=== PATIENT | female | born 1940 | race Caucasian/White ===

== ENCOUNTER 2019-02-19 18:19 | Inpatient (IN) | payer MEDICAID, MEDICARE ==
[2019-02-19 19:32] LABS: HEMOGLOBIN 9.8 gm/dL (12-16)
[2019-02-19 19:37] LABS: HEMATOCRIT 29.8 % (41.0-60); MEAN CORPUSCULAR HEMOGLOBIN 30.4 pg (27.0-31.0); MEAN CORPUSCULAR HGB CONC 32.8 pg (28.0-36.0); PLATELET COUNT 304 Th/cmm (150-400); RED BLOOD COUNT 3.21 Mil/cmm (3.80-5.20); RED CELL DISTRIBUTION WIDTH 13.6 % (11.5-20.0); WHITE BLOOD COUNT 4.5 Th/cmm (4.8-10.8)
[2019-02-19 19:47] LABS: ANION GAP 13.2 (7.0-16.0); BUN - UREA NITROGEN 34 mg/dL (7-25); CALCIUM SERUM 8.6 mg/dL (8.6-10.3); CHLORIDE 109 mEq/L (98-107); CREATININE - SERUM 1.3 mg/dL (0.6-1.2); GLUCOSE 110 mg/dL (70-105); POTASSIUM SERUM 4.2 mEq/L (3.5-5.1); SODIUM SERUM 137 mEq/L (136-145)
[2019-02-19 20:00] LABS: EOSINOPHIL 14 % (0-5); LYMPHOCYTE 14 % (20-50); MONOCYTE 12 % (2-10); NEUTROPHILS 60 % (40-80)
--- NOTE | 2019-02-19 20:33 | ED Physician Chart ---
ED Chief Complaint/HPI - Patient Information Date Seen:: 02/19/19 Time Seen:: 20:33 Chief Complaint:: Agitation History of Present Illness:: 78 yo female with history of COPD, CKD, anemia, CAD, CVA, depression, anxiety, [facility] anxiety, confusion and restlessness at [facility]. Pt was seen by Dr. Abdul (psychology) and Dr. chavez ( psychiatry) who recommended further evaluation and management. Pt also had elevated BUN 31, Cr 1.42 and decreased GFR 36, compared to BUN 28, Cr 1.22 and GFR 43 a month ago. Allergies:: Allergies Allergy/AdvReac Type Severity Reaction Status Date / Time No Known Allergies Allergy Verified 02/19/19 18:29 Vitals:: Vital Signs - 8 hr 02/19/19 18:32 Temp 99.2 F HR 94 RR 16 BP 128/66 O2 Sat % 96 ED Review of Systems - Review of Systems General/Constitutional: No fever, No chills Skin: Skin lesions Head: No headache Eyes: No pain ENT: No nasal drainage Neck: No neck pain Cardio Vascular: No chest pain Pulmonary: No SOB GI: No nausea, No vomiting, No pain Musculoskeletal: No bone or joint pain Psychiatric: Prior psych history, Depression, Anxiety Neurological: No confusion ED Past Medical History - Past Medical History Past Medical History: CAD, Asthma/COPD, CVA/TIA, Other (Dysphagia, CKD, anemia, gastritis) Social History: Non Smoker, No Alcohol, No Drug Use Psychiatricy History: Depression, Other (Anxiety) Family Medical History - Family Member Mother History Unknown: Yes Ethnicity: Unknown Living Status: Unknown Hx Family Cancer: No Hx Family Coronary Artery Disease: No Hx Family Congestive Heart Failure: No Hx Family Hypertension: No Hx Family Stroke: No Hx Family Diabetes: No Hx Family Seizures: No Hx Family Dementia: No Hx Family AIDS: No Hx Family HIV: No Hx Family COPD: No Hx Family Hepatitis: No Hx Family Psychiatric Problems: No Hx Family Tuberculosis: No ED Physical Exam - Physical Examination General/Constitutional: Awake Head: Atraumatic Eyes: PERRL, EOMI Other Skin comments:: Multiple scratch wounds on bilateral lower extremities ENMT: Nasal exam nl Neck: No nuchal rigidity Respiratory: No Wheeze/Rhonchi/Rales Cardio Vascular: RRR, No murmur, gallop, rubs, NL S1 S2 GI: No tenderness/rebounding/guarding, Nondistended : No CVA tenderness Extremities: normal strength in all extremities Neuro/Psych: Alert/oriented (x self and place) ED Labs/Radiology/EKG Results - Lab Results Results: Laboratory Tests 02/19/19 02/19/19 19:25 19:25 WBC 4.5 L RBC 3.21 L Hgb 9.8 L Hct 29.8 L MCV 93.0 MCH 30.4 MCHC Differential 32.8 RDW 13.6 Plt Count 304 MPV 6.8 Add Manual Diff YES Eosinophils % LOCKSTITCH ZIPPER SETTER Basophils % LOCKSTITCH ZIPPER SETTER Neutrophils (Manual) 60 Lymphocytes 14 L Monocytes 12 H Eosinophils 14 H Sodium 137 Potassium 4.2 Chloride 109 H Carbon Dioxide 19.0 L Anion Gap 13.2 BUN 34 H Creatinine 1.3 H Est GFR ( Amer) TNP Est GFR (Non-Af Amer) TNP BUN/Creatinine Ratio 26.2 Glucose 110 H Calcium 8.6 Laboratory Last Values WBC 4.5 Th/cmm (4.8-10.8) L 02/19/19 19:25 RBC 3.21 Mil/cmm (3.80-5.20) L 02/19/19 19:25 Hgb 9.8 gm/dL (12-16) L 02/19/19 19:25 Hct 29.8 % (41.0-60) L 02/19/19 19:25 MCV 93.0 fl (81-100) 02/19/19 19:25 MCH 30.4 pg (27.0-31.0) 02/19/19 19:25 MCHC Differential 32.8 pg (28.0-36.0) 02/19/19 19:25 RDW 13.6 % (11.5-20.0) 02/19/19 19:25 Plt Count 304 Th/cmm (150-400) 02/19/19 19:25 MPV 6.8 fl 02/19/19 19:25 Add Manual Diff YES 02/19/19 19:25 Eosinophils % LOCKSTITCH ZIPPER SETTER 02/19/19 19:25 Basophils % LOCKSTITCH ZIPPER SETTER 02/19/19 19:25 Neutrophils (Manual) 60 % (40-80) 02/19/19 19:25 Lymphocytes 14 % (20-50) L 02/19/19 19:25 Monocytes 12 % (2-10) H 02/19/19 19:25 Eosinophils 14 % (0-5) H 02/19/19 19:25 PT 9.5 SECONDS (9.5-11.5) 02/19/19 20:31 INR 0.91 (0.5-1.4) 02/19/19 20:31 PTT (Actin FS) 22.1 SECONDS (26.0-38.0) L 02/19/19 20:31 Sodium 137 mEq/L (136-145) 02/19/19 20:31 Potassium 4.2 mEq/L (3.5-5.1) 02/19/19 20:31 Chloride 109 mEq/L (98-107) H 02/19/19 20:31 Carbon Dioxide 18.4 mEq/L (21.0-31.0) L 02/19/19 20:31 Anion Gap 13.8 (7.0-16.0) 02/19/19 20:31 BUN 35 mg/dL (7-25) H 02/19/19 20:31 Creatinine 1.4 mg/dL (0.6-1.2) H 02/19/19 20:31 Est GFR ( Amer) TNP 02/19/19 20:31 Est GFR (Non-Af Amer) TNP 02/19/19 20:31 BUN/Creatinine Ratio 25.0 02/19/19 20:31 Glucose 111 mg/dL (70-105) H 02/19/19 20:31 Calcium 8.6 mg/dL (8.6-10.3) 02/19/19 20:31 Total Bilirubin 0.3 mg/dL (0.3-1.0) 02/19/19 20:31 AST 53 U/L (13-39) H 02/19/19 20:31 ALT 36 U/L (7-52) 02/19/19 20:31 Alkaline Phosphatase 134 U/L (34-104) H 02/19/19 20:31 Troponin I 0.02 ng/mL (0.01-0.05) 02/19/19 20:31 B-Natriuretic Peptide 61.1 pg/mL (5.0-100.0) 02/19/19 20:31 Total Protein 6.5 gm/dL (6.0-8.3) 02/19/19 20:31 Albumin 3.5 gm/dL (3.7-5.3) L 02/19/19 20:31 Globulin 3.0 gm/dL 02/19/19 20:31 Albumin/Globulin Ratio 1.2 (1.0-1.8) 02/19/19 20:31 Urine Source CLEAN C 02/19/19 21:56 Urine Color YELLOW 02/19/19 21:56 Urine Clarity HAZY (CLEAR) 02/19/19 21:56 Urine pH 6.0 (4.6 - 8.0) 02/19/19 21:56 Ur Specific [place] 1.020 (1.005-1.030) 02/19/19 21:56 Urine Protein TRACE mg/dL (NEGATIVE) 02/19/19 21:56 Urine Glucose (UA) NEGATIVE mg/dL (NEGATIVE) 02/19/19 21:56 Urine Ketones NEGATIVE mg/dL (NEGATIVE) 02/19/19 21:56 Urine Blood NEGATIVE (NEGATIVE) 02/19/19 21:56 Urine Nitrate NEGATIVE (NEGATIVE) 02/19/19 21:56 Urine Bilirubin NEGATIVE (NEGATIVE) 02/19/19 21:56 Urine Urobilinogen 0.2 E.U./dL (0.2 - 1.0) 02/19/19 21:56 Ur Leukocyte Esterase NEGATIVE (NEGATIVE) 02/19/19 21:56 Urine RBC 0-2 /hpf (0-5) 02/19/19 21:56 Urine WBC 0-2 /hpf (0-5) 02/19/19 21:56 Ur Epithelial Cells OCCASIONAL /lpf (FEW) 02/19/19 21:56 Urine Bacteria FEW /hpf (NONE SEEN) 02/19/19 21:56 Urine Opiates Screen NEGATIVE (NEGATIVE) 02/19/19 21:56 Urine Methadone Screen NEGATIVE (NEGATIVE) 02/19/19 21:56 Ur Barbiturates Screen NEGATIVE (NEGATIVE) 02/19/19 21:56 Ur Tricyclics Screen NEGATIVE (NEGATIVE) 02/19/19 21:56 Ur Phencyclidine Scrn NEGATIVE (NEGATIVE) 02/19/19 21:56 Amphetamines Screen NEGATIVE (NEGATIVE) 02/19/19 21:56 U Methamphetamines Scrn NEGATIVE (NEGATIVE) 02/19/19 21:56 U Benzodiazepines Scrn POSITIVE (NEGATIVE) H 02/19/19 21:56 U Cocaine Metab Screen NEGATIVE (NEGATIVE) 02/19/19 21:56 U Cannabinoids Screen NEGATIVE (NEGATIVE) 02/19/19 21:56 - Radiology Results Results: CXR: COPD, no focal consolidation - EKG Interpretations EKG Time:: 19:29 Rate & Rhythm: Sinus rhythm, 96 bpm Intervals: Normla intervals Comments:: Patient shook her body which caused inaccurate EKG ED Assessment - Assessment General Assessment: Anemia, normocytic Acute on chronic kidney disease CKD 3B COPD CAD Generalized anxiety disorder Depression Anxiety Psychosis Assessment/Comments:: CBC, CMP, PT/PTT, BNP, Troponin, UA, Urine drug screen CXR, EKG NS 1L IV (patient refused) Encourage pt to increase po fluid intake Admit to [facility] for further evaluation and management ED Septic Shock - . Is Septic Shock (SBP<90, OR Lactate>4 mmol\L) present?: No - <6hrs of presentation: Vital Signs: Vital Signs - 8 hr 02/19/19 18:32 Temp 99.2 F HR 94 RR 16 BP 128/66 O2 Sat % 96 ED Reassessment (Disposition) - Reassessment Reassessment Condition:: Improved - Patient Disposition Discharge/Transfer:: Ming w/in this hosp Admitting Medical Physician:: Sha Davila Admitting Psych Physician:: Adan Silverman
[2019-02-19 20:50] LABS: INR 0.91 (0.5-1.4)
[2019-02-19 20:54] LABS: ALB/GLOB RATIO 1.2 (1.0-1.8); ALBUMIN 3.5 gm/dL (3.7-5.3); ALKALINE PHOSPHATASE 134 U/L (34-104); ANION GAP 13.8 (7.0-16.0); BILIRUBIN,TOTAL 0.3 mg/dL (0.3-1.0); BUN - UREA NITROGEN 35 mg/dL (7-25); CALCIUM SERUM 8.6 mg/dL (8.6-10.3); CARBON DIOXIDE 18.4 mEq/L (21.0-31.0); CHLORIDE 109 mEq/L (98-107); CREATININE - SERUM 1.4 mg/dL (0.6-1.2); GLUCOSE 111 mg/dL (70-105); POTASSIUM SERUM 4.2 mEq/L (3.5-5.1); SGOT 53 U/L (13-39); SGPT/ALT 36 U/L (7-52); SODIUM SERUM 137 mEq/L (136-145); TOTAL PROTEIN,SERUM 6.5 gm/dL (6.0-8.3)
[2019-02-19] MEDS ORDERED: Sodium Chloride 0.9% 1,000 ML IV ONE (21:02)
[2019-02-19 22:11] LABS: URINE SOURCE CLEAN C
[2019-02-19 22:14] LABS: URINE BILIRUBIN NEGATIVE (NEGATIVE); URINE BLOOD NEGATIVE (NEGATIVE); URINE GLUCOSE (UA) NEGATIVE (NEGATIVE); URINE KETONE NEGATIVE (NEGATIVE); URINE LEUKOCYTE ESTERASE NEGATIVE (NEGATIVE); URINE MICROSCOPIC INDICATED? YES; URINE NITRATE NEGATIVE (NEGATIVE); URINE PROTEIN TRACE mg/dL (NEGATIVE); URINE UROBILINOGEN 0.2 E.U./dL (0.2 - 1.0)
[2019-02-19 22:18] LABS: URINE CLARITY HAZY (CLEAR); URINE COLOR YELLOW
[2019-02-19 22:21] LABS: URINE RBC 0-2 /hpf (0-5); URINE WBC 0-2 /hpf (0-5)
[2019-02-19 22:22] LABS: URINE BACTERIA FEW /hpf (NONE SEEN); URINE EPITHELIAL CELLS OCCASIONAL /lpf (FEW)
[2019-02-19 22:24] LABS: AMPHETAMINE URINE NEGATIVE (NEGATIVE); BARBITURATES URINE NEGATIVE (NEGATIVE); BENZODIAZEPINES QUAL URINE POSITIVE (NEGATIVE); CANNABINOID THC NEGATIVE (NEGATIVE); COCAINE METABOLITE QUAL URINE NEGATIVE (NEGATIVE); METHADONE URINE NEGATIVE (NEGATIVE); METHAMPHETAMINES QUAL URINE NEGATIVE (NEGATIVE); OPIATES (MORPHINE) QUAL. URINE NEGATIVE (NEGATIVE); PHENCYCLIDINE (PCP) URINE NEGATIVE (NEGATIVE); TRICYCLICS (TCA) QUAL. URINE NEGATIVE (NEGATIVE)
[2019-02-19 23:18] VITALS: BP 133/77
[2019-02-20 07:08] LABS: A1C 5.9 % (4.8-5.6)
[2019-02-20 08:16] LABS: CHOLESTEROL 127 mg/dL (<200); HDL -HIGH DENSITY LIPOPROTEIN 71 mg/dL (23-92); TRIGLYCERIDES 63 mg/dL (<150)
--- NOTE | 2019-02-20 09:10 | Diagnostic Imaging Report ---
Portable chest x-ray History: Shortness of breath Allowing for portable technique the heart size is normal. Tortuosity the thoracic aorta. No focal pulmonary parenchymal processes. No hilar or mediastinal abnormalities. Atherosclerotic calcification seen in the region of the carotid arteries. Impression: 1. No acute abnormalities. 2. Atherosclerotic vascular changes
--- NOTE | 2019-02-20 11:14 | Psychiatric Evaluation ---
DATE OF SERVICE: 02/20/19 REASON FOR ADMISSION: The patient was admitted for anxiety and depression. HISTORY OF PRESENT ILLNESS: The patient is a 78-year-old from [facility]. On the day of admission, the staff called to request inpatient treatment because the patient has persistent issue with anxiety, constantly calling for staff and yet not knowing what she needs. Staff reported that the patient was on Ativan p.r.n. before, but it was switched to BuSpar that does not seem to help the patient. The staff reported that the patient has been requesting to go to the hospital. Upon interview, the patient appeared to be a poor historian. The patient was able to give her name and date of , but not her age. When asked where she was living prior to coming here, the patient stated that she was living in [place], home that belongs to her 's friend. The patient reported that she lives with few other people. When asked why she is here, the patient stated her feet itch. The patient reported that this has been going on for a few weeks. The patient was not able to say what caused itching. The patient reported that last night she did not sleep well because of the noises. The patient said that normally she can sleep without any problem, without taking any medication. The patient reported that she is eating okay. When asked if she is happy or sad, the patient stated that she is not happy because she wanted her friends and family around her. The patient then went on to say that she wanted her state's attorney to be here with her. When asked if she remembers the phone number of her state's attorney, Araceli Doyle, the patient states that she does not remember. PAST PSYCHIATRIC HISTORY: The patient has history of anxiety and possibly psychosis since the patient frequently calls for help and yet she does not know what she needs. MEDICAL HISTORY: COPD, dysphagia, chronic kidney disease, anemia, atherosclerotic heart disease, anxiety, TIA. Seizure disorder. ALLERGIES: No known allergy. MEDICATIONS: Currently, the patient is on Tylenol, Lipitor, BuSpar, Colace, Atarax, Keppra, Ativan 0.5 mg q. 4 hours p.r.n., Cozaar. SURGICAL HISTORY: The patient reported that she had one section and left kidney removed. PERSONAL AND SOCIAL HISTORY: The patient reported that her and she had one son who also . The patient reported that she dropped out of the 10th grade. She used to work in the restaurant, setting up tables and stuff. The patient stated that she worked for about 10 years. When asked what she did after that the patient was not able to answer. SUBSTANCE ABUSE HISTORY: The patient denied any alcohol or tobacco use. MENTAL STATUS EXAMINATION: The patient appeared somewhat older than stated age. The patient was cooperative, maintained good eye contact. Speech appeared to be normal. Mood appeared to be somewhat anxious. Sensorium: The patient was alert, a bit confused and disoriented to time, place and person. Memory: Immediate memory, the patient was able to repeat 4 items after they were given to her the first time. Short term memory, the patient was able to recall 2/4 items. When given hints, the patient was able to recall the third item. The patient was not able to give interpretation to any of the 3 proverbs. Concentration appeared to be adequate; however, the patient was unable to perform any of the serial 3 subtraction. Insight poor. Judgment impaired. DIAGNOSTIC IMPRESSION: AXIS I: 1. Alzheimer's dementia with psychosis, depression and anxiety. 2. Psychotic disorder and mood disorder, depressed, and anxiety disorder due to medical condition. 3. Personality change due to medical condition. 4. Impulse control disorder, not otherwise specified. AXIS II: Deferred. AXIS III: Chronic obstructive pulmonary disease, dysphagia, chronic kidney disease, anemia, atherosclerotic heart disease, anxiety, transient ischemic attack and seizure disorder. AXIS IV: Medical and mental illnesses. AXIS V: Current 20, past year unknown. PLAN: We will continue the patient on Ativan for now. We will observe the patient for any psychotic symptoms. Consider using an antipsychotic if the patient exhibits any psychotic symptoms such as responding to internal stimuli, calling for staff frequently, but not knowing what she needs. ESTIMATED LENGTH OF STAY: 7-10 days. DISCHARGE CRITERIA: Include improvement of her symptoms and no adverse reaction to any medications. JOB# [id number] COLEMAN
--- NOTE | 2019-02-20 18:38 | History & Physical ---
ADMIT DATE: 02/20/2019 INTERNAL MEDICINE CONSULTATION HISTORY OF PRESENT ILLNESS: The patient is a 78-year-old female resident of a [place] [facility]. The patient of mine I am being the primary care physician. CURRENT MEDICAL PROBLEMS: Include hypertension, COPD, history of CVA, coronary artery disease, peptic ulcer disease, gastritis, arthritis, osteoporosis, and history of vertigo. SOCIAL HISTORY: No history of smoking, alcohol abuse. OBSTETRIC HISTORY: P0 +0. Menses are postmenopausal. REVIEW OF SYSTEMS: The patient is very confused, no vomiting, no diarrhea, no melena, complained of a generalized body ache. PHYSICAL EXAMINATION: GENERAL: Average female in no obvious respiratory distress. VITAL SIGNS: Include a blood pressure of 110/70, heart rate 80, respiratory rate of 18. SKIN: Show no cellulitis. HEENT: Normal conjunctivae. NECK: Supple. LUNGS: Show occasional rhonchi, occasional crepitation. No bronchial breathing. HEART: First and second heart sounds normal. ABDOMEN: Soft, minimal epigastric tenderness. Bowel sounds present, good. EXTREMITIES: Show arthritis. NEUROLOGIC: The patient has no focal motor deficits. MEDICAL DIAGNOSES: Include chronic obstructive pulmonary disease, hypertension, CVA, coronary artery disease, peptic ulcer disease, gastritis, arthritis, osteoporosis, history of vertigo. Labs have been reviewed. Medicine has been reviewed. Continue current medical management. Psych consult reviewed. JOB# [id number]
[2019-02-20] MEDS ORDERED: Atorvastatin Calcium 10 MG TAB PO SCH (21:00)
--- NOTE | 2019-02-21 17:49 | Progress Notes ---
DATE: 02/21/2019 INTERNAL MEDICINE CONSULTATION FOLLOWUP SUBJECTIVE: The patient is 78-year-old patient of mine, currently in Geropsych Unit. No new symptoms. No chest pain. No shortness of breath. No nausea. No vomiting, chronic pain. PAST MEDICAL HISTORY: Significant for hypertension, COPD, coronary artery disease, peptic ulcer disease, arthritis, hyperlipidemia. OBJECTIVE: VITAL SIGNS: Stable. LUNGS: Clear. HEART: First and second heart sounds normal. ABDOMEN: Soft. Bowel sounds appeared good. No tenderness. No guarding. MUSCULOSKELETAL SYSTEM: Show arthritis. NEUROLOGIC: The patient has dementia. PLAN: Continue current medical management. JOB# [id number]
--- NOTE | 2019-02-21 19:21 | Progress Notes ---
DATE: 02/21/2019 SUBJECTIVE: The patient was in Rola chair in the activity room. The patient was alert. The patient was verbally responsive. When asked how she is doing, the patient stated that she is not doing well; however, the patient was unable to be specific as to what she meant by that. The patient admitted to feeling anxious and feeling depressed. When asked if she feels hopeless and helpless, the patient said yes. The patient denied any suicidal ideation, plan or intention. The patient reported that she was hospitalized in a psychiatric hospital when she was about [age] years old for about 2 weeks. The patient was not able to give much information as to what she was diagnosed with and how she was treated back then. The patient reported that she ate this morning and she slept okay. The patient stated that she has not heard from her tool maker, Araceli Doyle. The patient stated that she does not have her tool maker's phone number. OBJECTIVE: The patient continued to be alert and cooperative; however, the patient appeared to be more emotional today. The patient admitted to feeling depressed and anxious. The staff reported that the patient has been doing okay. The patient ate this morning and slept okay last night. The staff reported that the patient has been cooperative with care and treatment. The patient took her medications. ASSESSMENT: 1. Alzheimer dementia with depression, anxiety and possibly psychosis. 2. Mood disorder, depressed and anxiety disorder due to medical condition with possibly psychotic disorder. 3. Personality change due to medical condition. 4. Impulse control disorder, not otherwise specified. PLAN: We will discontinue buspirone since the patient is also on Ativan p.r.n. We will start the patient on Zoloft 25 mg p.o. q.a.m. for depression. We will monitor the patient's response to the medication and for any side effects. JOB# [id number] COLEMAN
--- NOTE | 2019-02-22 01:23 | Consultation ---
DATE OF CONSULTATION: 02/21/2019 REFERRING PHYSICIAN: Adan Silverman M.D. TYPE OF CONSULTATION: Psychology. HISTORY OF PRESENT ILLNESS: The patient is a 78-year-old female. The patient is known to this story writer from the patient's placement, which is [facility]. The following is by review of the medical record as well as by the patient's self-report. The patient was seen by this story writer at [facility] on 02/18/2019 for followup care and treatment. The patient complained of increased anxiety and that her medications were not effective. The patient stated that she felt helpless and that she was confused and was requesting hospitalization. The patient stated that something was wrong and that she needed help and no one was helping her. Staff was informed. Nursing informed the primary care physician and the attending psychiatrist for reevaluation of her medication and possible recommendation for inpatient hospitalization. The patient's medication had been changed recently. The patient also complained about persistent itching. The patient stated that she felt that everything was out of control. The patient endorsed the items of feeling helpless and hopeless. The patient's medications and the psychotherapeutic interventions apparently were ineffective in managing the patient on an outpatient basis. Therefore, the patient was referred here for stabilization. PAST MEDICAL HISTORY: COPD, dysphagia, chronic kidney disease, anemia, atherosclerotic heart disease, anxiety, TIA, seizure disorder. Please see history and physical by Dr. Davila for the complete history. PAST PSYCHIATRIC HISTORY: The patient is a resident of a penit[facility]iary facility, specifically [facility]. The patient is seen by both Psychiatry and Psychology at her placement. The patient has previous hospitalizations. The patient has a history of anxiety and depression as well as dementia. The patient was taking Xanax 0.25 mg every 8 hours p.r.n. This was discontinued recently and BuSpar was added. ALLERGIES: No known drug allergies. CURRENT MEDICATIONS: Please see the medication reconciliation. SUBSTANCE ABUSE HISTORY: The patient denied any history of alcohol, tobacco or illicit drug use. PSYCHOSOCIAL HISTORY: The patient is known to this story writer for approximately 4 years. The patient is a resident of [facility]. The patient used to work in a restaurant many years ago. She is . The patient's some years ago. The patient had one son who also is . The patient dropped out of the 10th grade. The patient did not answer questions about church affiliation; however, the patient states that she believes she is a [employer]. The patient denied any history of physical or sexual abuse. She denied any current legal problems and states that she has a DPOA, Araceli Doyle. The patient expects to return to her penitentiary upon discharge. MENTAL STATUS EXAMINATION: The patient appears to be older than her stated age. The patient's attitude was cooperative. Eye contact is fair. Speech is spontaneous with intermittent hyperverbal episodes. Mood is anxious and fluctuating. Affect is mood congruent, labile and tearful. Thought process shows to be confused at times. The patient denied any suicidal ideation, plan or intention. The patient denied any auditory or visual hallucinations. The patient did endorse items of feeling helpless and hopeless. The patient's behavior on the unit has been responsive to staff direction. Impulse control is inadequate. Concentration is fair to poor. The patient was able to sustain focus and attention only intermittently, but was cognitively redirectable. The patient was given 3 items to recall. The patient was able to recall 2 out of the 3 items after several minutes. The patient's immediate and short term memory seemed to be grossly intact. Long-term memory seems to be fairly intact. Sensorium is alert and oriented times 3. The patient did not participate in the interpretation of proverbs. Insight is poor. Judgment is compromised. DIAGNOSTIC IMPRESSION: AXIS I: 1. History of dementia, Alzheimer's type with depression and psychosis. 2. Mood disorder due to medical condition. 3. 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 4. Generalized anxiety disorder. 5. Impulse control disorder, not otherwise specified. 6. Provisional diagnosis of personality change due to medical condition. AXIS II: Deferred. AXIS III: Please see history and physical by Dr. Davila. TREATMENT PLAN: The patient has been seen by Dr. Silverman for psychiatric evaluation and for the management of the patient's psychotropic medications. The attending psychiatrist indicates the patient will be continued on Ativan and that an antipsychotic medication may be considered contingent on the patient exhibiting any psychotic symptoms. We will provide supportive psychotherapy to include anxiety reduction. We will provide coping strategies for chronic mental illness and for phase of life issues. We will encourage the patient to participate in her recovery and to become compliant and stay compliant with all aspects of her care and treatment. Thank you, Dr. Silverman for this consult and the opportunity to participate in this patient's care. JOB# [id number] COLEMAN
--- NOTE | 2019-02-23 16:43 | Progress Notes ---
DATE: 02/22/2019 SUBJECTIVE: The patient was up in Rola chair in the dining room. The patient was alert, but confused. The patient was cooperative. The patient reported that she ate most of her breakfast. The patient stated that she did not sleep well last night because it was noisy. The patient stated that nobody came by to see her. The patient continued to report that she feels depressed. The patient denied any auditory or visual hallucination or delusion. However, the patient was heard yelling "help, help, help." When asked what she needed, the patient stated that she has to go to the bathroom. The patient reported that she is doing okay, not that great. The patient was not able to say what would make her feel better. OBJECTIVE: The patient continued to be alert and cooperative, but confused. The staff reported that the patient ate well this morning and she slept about 4-5 hours. The staff reported that the patient has been yelling "help, help, help" frequently. When the staff attended to her, the patient would stop, but soon after the staff left her she would start yelling again. Staff reported that the patient has been cooperative with care and treatment. The patient took her medications without any problem. ASSESSMENT: 1. Alzheimer dementia with psychosis, depression and anxiety. 2. Psychotic disorder and mood disorder, depressed and anxiety disorder due to medical condition. 3. Personality change due to medical condition. 4. Impulse control disorder, not otherwise specified. PLAN: We will continue the patient on Zoloft. We will monitor the patient for episodes of yelling, calling for help, to see if patient is responding to internal stimuli. If there is evidence that the patient has some psychotic symptoms, we will consider starting the patient on antipsychotic. JOB# [id number] COLEMAN
--- NOTE | 2019-02-24 01:59 | Progress Notes ---
DATE: 02/23/2019 SUBJECTIVE: The patient was resting in bed with her breakfast tray in front of her. The patient had her eyes closed. The patient responded to verbal stimuli. When asked how she has been eating, the patient stated that she is eating well. When asked about the breakfast that is in front of her, the patient stated that she ate all that she wanted to eat. The patient did not eat much of her breakfast this morning, but the patient reported that she slept well. The patient reported that she feels happy, but not able to say why. The patient stated that she likes this place, when jokingly said to her that we will keep her, the patient stated "not too long." OBJECTIVE: The patient appeared to be cheerful and pleasant this morning. The patient did not exhibit any signs of anxiety. The staff reported that the patient has been doing okay. The patient has been taking her medications as well as eating and sleeping well. There was no report of the patient yelling help, help, help. ASSESSMENT: 1. 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 2. Psychotic disorder and mood disorder, depressed due to medical condition. 3. Impulse-control disorder, not otherwise specified. 4. Personality change due to medical condition. PLAN: The patient seems to be responding well to Zoloft. The patient appeared to be more cheerful and denying being depressed. The patient showed no anxiety either. We will continue to monitor the patient for any episodes of yelling for no particular reason. [facility]# [id number]
--- NOTE | 2019-02-24 20:48 | Progress Notes ---
DATE: 02/24/2019 SUBJECTIVE: The patient was asleep in bed. The patient responded to physical and verbal stimuli. The patient reported that she has not had her breakfast. When asked if she is hungry, the patient stated "a little." When asked if she wants anything to eat right now, the patient declined. The patient reported that she slept well last night. When asked how she is feeling, if she is feeling sad and anxious, the patient denied. When asked if anyone visited her since she has been here, the patient stated "No". OBJECTIVE: The patient continued to be calm and cooperative. The patient did not exhibit any anxiety or reported feeling depressed. The patient also denied any auditory or visual hallucinations or delusions. The staff reported that the patient has been doing okay. No report of any behavioral problem. The patient's appetite fluctuates. The patient seems to be sleeping okay. The staff also reported that the patient has not reported any depression or anxiety. The patient also has not been yelling for help. ASSESSMENT: 1. Vascular dementia with depression and anxiety with possibly psychosis. 2. Mood disorder, depressed and anxiety with possibly psychosis due to medical condition. 3. Impulse control disorder, not otherwise specified. 4. Personality change due to medical condition. PLAN: We will continue the patient on Zoloft and Ativan p.r.n. The patient appeared to be responding well to the Zoloft. If the patient continued to be doing well, we will consider discharging the patient in the next couple of days if there is no change in her condition. [facility]# [id number] [facility]
[2019-02-24] MEDS: Acetaminophen 500 MG TAB PO PRN (23:32)
--- NOTE | 2019-02-25 09:09 | Progress Notes ---
DATE: 02/22/2019 INTERNAL MEDICINE CONSULTATION FOLLOWUP SUBJECTIVE: This patient is a 78-year-old female. Current medical problems include hypertension, COPD, history of CVA, coronary artery disease, hyperlipidemia, peptic ulcer disease, gastritis, arthritis, osteoporosis, ____. PHYSICAL EXAMINATION: VITAL SIGNS: Stable. LUNGS: Show occasional rhonchi, occasional crepitation, no bronchial breathing. HEART: First and second heart sounds are normal. ABDOMEN: Soft. Kidneys are not palpable. EXTREMITIES: Show arthritis. NEUROLOGIC: The patient has no focal deficits. MEDICAL DIAGNOSES: As dictated above. Psyche consult reviewed. Continue current medical management. We will follow up. JOB# [id number]
--- NOTE | 2019-02-25 09:23 | Progress Notes ---
DATE: 02/23/2019 PSYCHOLOGY PROGRESS NOTE SUBJECTIVE: The patient is seen resting in her bed. The patient is somnolent and barely arousable verbally. The patient responded to this mortgage loan underwriter with her eyes closed. Staff reports the patient has been eating partial meals, but that she refuses food at times. The patient is sleeping most of the day and is isolative and withdrawn. The patient states that she feels helpless and that no one can help her. OBJECTIVE: Mood is irritable. Affect is constricted. Thought process shows to be fearful. Affect is labile. The patient continues to endorse feelings of helplessness and hopelessness. The patient states that she still is feeling some anxiety, but it has lessened somewhat. The patient denied any hallucinations or delusions. The patient has been taking her p.o. medications. ASSESSMENT AND PLAN: The patient's anxiety has lessened and the patient continues to feel depressed about her medical condition and her life circumstances. We provided a simple anxiety reduction scale. The patient did not participate in the cognitive behavioral intervention. We provided remotivation for the patient to stay compliant with her care and treatment. We provided coping strategies for phase of life issues. We will follow up in 2 days to continue the present treatment. The attending psychiatrist has started the patient on Zoloft. We will continue to monitor the patient for episodes of anxiety, depression, yelling and restlessness. JOB# [id number] [facility]
--- NOTE | 2019-02-25 17:04 | Progress Notes ---
DATE: 02/24/2019 INTERNAL MEDICINE CONSULTATION FOLLOWUP SUBJECTIVE: The patient is a 78-year-old female. Current medical problems include hypertension, COPD, coronary artery disease, history of severe hyperlipidemia, peptic ulcer disease, gastritis, arthritis. No new symptoms. PHYSICAL EXAMINATION: VITAL SIGNS: Stable. LUNGS: Show occasional rhonchi, occasional crepitation. No bronchial breathing. HEART: First and second heart sounds are normal. ABDOMEN: Soft. Bowel sounds appeared good. EXTREMITIES: Show arthritis. NEUROLOGIC: The patient has no deficits. PLAN: Continue current medical regimen. Psych consult reviewed. JOB# [id number]
--- NOTE | 2019-02-25 22:02 | Progress Notes ---
DATE: 02/25/2019 PSYCHOLOGY PROGRESS NOTE SUBJECTIVE: The patient is seen in her room. The patient appears to be somnolent, but is easily arousable verbally. The patient states that she feels a little bit better. The patient is still having poor appetite. The patient states that she is not as anxious as she was a day or two ago. OBJECTIVE: Mood is less anxious. Affect is mood congruent. Thought process shows to be more goal oriented versus goal avoidant with helplessness as before. The patient denied any hallucinations or delusions. The staff reports no behavioral problems. The patient has not been yelling for help or stating that no one can help her as before. ASSESSMENT AND PLAN: The patient seems to be improving. Her mood is still anxious. We provided a simple anxiety reduction skill. We provided remotivation for the patient to stay compliant with her care and treatment. We provided motivational enhancement for the patient to personally participate in her treatment and her care going forward versus avoiding responsibility and claiming helplessness and hopelessness with respect to her treatment goals. The patient's impulsivity is improving. We provided positive reinforcement for the patient to continue to stay compliant with her care and treatment. We provided coping strategies for phase of life issues as well. We will follow up in 2 days to continue the present treatment. This sign writer letterer or painter will also follow the patient at her placement. JOB# [id number] [facility]
--- NOTE | 2019-02-25 22:38 | Progress Notes ---
DATE: 02/25/2019 SUBJECTIVE: The patient was resting in bed with eyes closed. The patient responded to physical and verbal stimuli. The patient reported that she is doing okay. The patient reported that she ate this morning and slept pretty well. The patient denied any depression or anxiety. OBJECTIVE: The patient continued to be calm and cooperative during the interview. The patient did not exhibit any sign and symptoms of depressions, agitation or anxiety. The patient continued to deny any auditory or visual hallucination or delusion. The staff reported that the patient walked towards the exit door last evening. The staff reported that the patient slept about 3 hours. The patient was given Ativan at 9:00 last night. The staff reported that the patient ate about 75% this morning. The staff reported that the patient's blood pressure has been low and some of the medications have been held. Staff reported that the patient was given Tylenol 1000 mg at 11:00 last night as well. Staff reported that the patient exhibited some confusion; however, the staff did not ask the patient when the patient tried to leave the unit as to what she was trying to do. Discussed with the staff about asking the patients when the patient walk towards the exit door to find out what she was on her mind, just to assess if the patient has any hallucinations or delusions. ASSESSMENT: 1. Vascular dementia with depression and anxiety with possibly psychosis. 2. Mood disorder, depressed and anxiety disorder with possible psychosis due to medical condition. 3. Impulse control disorder, not otherwise specified. 4. Personality change due to medical condition. PLAN: We will continue the patient on Zoloft. We will monitor the patient for her blood pressure and we will assess the patient for any psychotic symptoms. If the patient shows psychotic symptoms, consider using antipsychotic. JOB# [id number] [facility]
--- NOTE | 2019-02-26 00:54 | Progress Notes ---
DATE: 02/25/2019 INTERNAL MEDICINE CONSULTATION FOLLOWUP SUBJECTIVE: The patient is a 78-year-old female. Current medical problems include hypertension, COPD, history of CVA, coronary artery disease, peptic ulcer disease, gastritis, arthritis, hyperlipidemia. OBJECTIVE: VITAL SIGNS: Stable. LUNGS: Show occasional rhonchi, occasional crepitation. No bronchial breathing. HEART: First and second sounds normal. ABDOMEN: Soft. Bowel sounds present. EXTREMITIES: Show arthritis. NEUROLOGIC: No additional focal deficit. Psychiatric consult reviewed. PLAN: Continue current medical management. JOB# [id number]
--- NOTE | 2019-02-26 20:27 | Progress Notes ---
DATE: 02/26/2019 SUBJECTIVE: The patient was in a Rola chair in the hallway. The patient was alert, calm, and pleasant. The patient appeared to be forgetful. The patient stated that she did not have breakfast or lunch. When asked if she wants something to eat, the patient stated "Yes". When asked if she wanted peanut butter and jelly sandwich, the patient said "No". She wanted "Chicken or Egg sandwich". The patient reported that she is feeling okay. The patient denied being depressed or anxious. The patient also denied any auditory or visual hallucination or delusion. OBJECTIVE: The patient is more alert today. The patient continued to be cooperative and pleasant. The patient was able to give her first name. The patient reported that she did not sleep well last night. She was not able to say why she did not sleep well. When asked what did when she cannot sleep, the patient stated that she was up walking. The staff reported that the patient has been doing okay. The patient has been more alert today. The staff reported that the patient ate about 70% of breakfast, but refused to eat lunch. The staff reported that patient is forgetful, but no behavior problem. The staff reported that the patient denied any hallucinations or delusions and no suicidal ideation, plan or intention. ASSESSMENT: 1. Vascular dementia with psychosis and depression with anxiety and behavioral disturbance. 2. Psychotic disorder, mood disorder, depressed and anxiety disorder due to medical condition. 3. Impulse control disorder, not otherwise specified. 4. Personality change due to medical condition. PLAN: We will continue the patient on Zoloft and monitor the patient's response to the medication. We will consider discharging the patient in the next day or two if there is no change in her condition. JOB# [id number] [facility]
--- NOTE | 2019-02-27 02:36 | Progress Notes ---
DATE: 02/26/2019 SUBJECTIVE: The patient is a 78-year-old patient of mine. CURRENT MEDICAL PROBLEMS: Hypertension, COPD, history of CVA, coronary artery disease, hyperlipidemia, peptic ____, osteoporosis. No new symptoms. OBJECTIVE: VITAL SIGNS: Stable. LUNGS: Show occasional rhonchi, occasional crepitation. No rhonchi or wheezing. HEART: First and second heart sound normal. ABDOMEN: Soft. No kidneys are palpable. EXTREMITIES: Show arthritis. NEUROLOGIC: The patient is confused. PSYCHIATRIC: ____. PLAN: Continue current medical management. JOB# [id number]
--- NOTE | 2019-02-27 22:53 | Progress Notes ---
DATE: 02/27/2019 SUBJECTIVE: The patient was resting on her bed. The patient responded to verbal stimuli. The patient reported that she is doing okay. The patient denied any depression or anxiety. The patient stated that she did not have anything to eat today. When asked why she has her feet and ankle wrapped up, the patient acted surprised that they were wrapped up. The patient was not able to give any information as to why they were wrapped up. When asked if she has been up today, the patient stated no. The patient continued to deny any auditory or visual hallucination or delusion. OBJECTIVE: The patient continued to be calm and cooperative. The staff reported that the patient did not sleep last night even after given Ativan. Staff reported that when the patient is awake, the patient tends to scratch her ankles and feet. The staff had to wrap her feet so that the patient would not scratch and cause any skin tear. The staff reported that the patient continued to be confused but has been cooperative with care and treatment. The patient took her medications without any problem. ASSESSMENT: 1. Vascular dementia with depression and anxiety and possibly psychosis. 2. Mood disorder, depressed and anxiety disorder with possibly psychosis due to medical condition. 3. Impulse control disorder, not otherwise specified. 4. Personality change due to medical condition. PLAN: We will continue the patient on current medication. We will plan for discharge tomorrow. JOB# [id number] [facility]
--- NOTE | 2019-02-27 23:57 | Progress Notes ---
DATE: 02/27/2019 SUBJECTIVE: The patient is a 78-year-old female. CURRENT MEDICAL PROBLEMS: Include hypertension, COPD, history of CVA, coronary artery disease, hyperlipidemia, peptic ulcer disease, arthritis, osteoporosis. No new symptoms. OBJECTIVE: VITAL SIGNS: Stable. LUNGS: Show occasional rhonchi, occasional crepitation. No bronchial breathing. HEART: First and second heart sounds normal. ABDOMEN: Soft. Bowel sounds are present and good. EXTREMITIES: Show arthritis. NEUROLOGIC: The patient has dementia. Psych consult reviewed. PLAN: Continue current medical management. JOB# [id number]
[2019-02-28] MEDS: Acetaminophen 500 MG TAB PO PRN (16:04)
[2019-02-28] MEDS: Eucerin Cream 16 oz Jar TP SCH ×2 (16:36→17:05)
[2019-02-28] MEDS ORDERED: Eucerin Cream 16 oz Jar TP SCH (17:00)
--- NOTE | 2019-02-28 21:05 | Progress Notes ---
DATE: 02/27/2019 PSYCHOLOGY PROGRESS NOTE SUBJECTIVE: The patient is seen in her room. The patient is asleep. The patient is arousable by verbal stimuli. The patient states she is doing okay. The patient reports that she is eating most of her meals. The patient asked to see the pillowcase sewer about discharging and returning to [facility]. OBJECTIVE: Mood is stabilizing. Affect is constricted. Thought process shows to be linear and concrete with some confusion. The patient is not experiencing any delusions or hallucinations. The patient reports her anxiety seems to be diminishing. The patient has been compliant with her care and treatment. ASSESSMENT AND PLAN: The patient seems to be approaching baseline. We encouraged the patient to participate in her treatment and to be able to follow through with skills learned in treatment to reduce her anxiety and depression. We provided positive reinforcement for the patient to stay compliant with her care and treatment. We provided coping strategies for phase of life issues. This abstract writer will follow up at the patient's placement. We will follow up in 2 days here on the geropsychiatric unit if the patient is still admitted. JOB# [id number] [facility]
--- NOTE | 2019-02-28 22:55 | Progress Notes ---
DATE: 02/28/2019 SUBJECTIVE: The patient was resting in bed, alert as the staff taking her vital signs. The patient reported that she has been doing okay. The patient stated that she has not eaten anything today. The patient reported that she slept okay. The patient continued to be pleasant and cooperative during the interview. OBJECTIVE: The patient continued to be calm and pleasant. No signs and symptoms of depression or anxiety. The staff reported that the patient ate well this morning and the patient has been doing quite well. The patient has been cooperative and pleasant. The patient ate well. The patient was up in the Rola chair earlier today. The patient took her medications without any problem. ASSESSMENT: 1. Vascular dementia with depression and anxiety and possibly psychosis. 2. Mood disorder, depressed and anxiety disorder with possibly psychosis due to medical condition. 3. Impulse control disorder, not otherwise specified. 4. Personality change due to medical condition. PLAN: We will continue the patient on Zoloft and Ativan and monitor the patient for any problem. If the patient continued to be doing well today, we will discharge the patient tomorrow. The patient had difficulty sleeping the night before. We will make sure that the patient is sleeping okay tonight before discharging the patient tomorrow. JOB# [id number] [facility]
[2019-03-01] MEDS: Eucerin Cream 16 oz Jar TP SCH (08:23)
--- NOTE | 2019-03-01 09:19 | Discharge Summary ---
DATE OF DISCHARGE: 03/01/2019 REASON FOR ADMISSION: The patient was admitted for increased anxiety and depression. HISTORY OF PRESENT ILLNESS: The patient was a 78 years old from [facility]. On the day of admission, the staff called to request inpatient treatment because the patient has been showing increased signs of anxiety and depression, has been calling the staff frequently and not able to say what she needs. The patient was admitted on 02/19/2019. HOSPITAL COURSE: After admission, the patient appeared to be confused. The patient reported that she is depressed, feeling hopeless. The patient was started on Zoloft 25 mg p.o. q.a.m. The patient showed good response to the Zoloft. The patient reported that she does not feel depressed or anxious anymore. Only on a few occasions that the patient would be calling for help, but then she knew what she wanted. Since the patient showed good response to the Zoloft, therefore the patient was discharged on 03/01/2019. LAB RESULTS DURING HER HOSPITALIZATION: Upon admission, the patient had some abnormal CBC: WBC of 4.5, RBC 3.21, hemoglobin 9.8, hematocrit 29.8, lymphocytes 14, this is slightly low; monocytes 12, eosinophils 14, this is slightly elevated; PTT was 22.1, is slightly low. Chemistry panel: Chloride 109, slightly elevated; CO2 of 19.0, slightly low; BUN 34, creatinine 1.3, glucose 110. Repeated chemistry panel on 02/19/2019 at 2359 hours continued to show chloride 109, slightly elevated; BUN 35, creatinine 1.4, glucose 111, AST 53, alkaline phosphatase 134, this is slightly elevated; CO2 of 18.4, slightly low; albumin 3.5, LDL of 36, both are slightly low. Urinalysis showed no abnormal findings. Toxicology showed positive for benzodiazepine. For microbiology, patient was positive for Staph aureus, MRSA isolated. MEDICATIONS: The patient was maintained on Tylenol, Lipitor, Colace, Atarax, Keppra, Ativan, Cozaar, Zoloft. The patient continued to do well on her current medication. Therefore, the patient will be discharged on the same medications. Ativan was 0.5 mg p.o. q.6 hours p.r.n. and Zoloft 25 mg daily. DISCHARGE PLAN: The patient will be transferred back to [facility] on current medications. FINAL DIAGNOSES: AXIS I: 1. Vascular dementia with depression, anxiety and possibly psychosis. 2. Mood disorder and depression with possibly psychosis due to medical condition. 3. Personality change due to medical condition. 4. Impulse control disorder, not otherwise specified. AXIS II: Deferred. AXIS III: Chronic obstructive pulmonary disease, dysphagia, chronic kidney disease, anemia, atherosclerotic heart disease, anxiety, transient ischemic attack and seizure disorder. AXIS IV. Medical and mental illnesses. AXIS V: Current 30, past year unknown. JOB# [id number] [facility] HOSPITALAntonieta
--- NOTE | 2019-03-01 20:39 | Progress Notes ---
DATE: 03/01/2019 PSYCHOLOGY PROGRESS NOTE SUBJECTIVE: The patient is seen in her room. The patient is somnolent, but arousable verbally. The patient states that she feels much better. However, the patient is requesting to see the nurse because she is feeling slightly nauseous. The patient continued to be pleasant and is responding to the interventions being provided. OBJECTIVE: Mood is stabilizing. Affect remains constricted. Thought process shows to be less fearful and less anxious regarding her treatment as well as her placement and her current medical condition. Thought process seems to be more goal oriented. The patient denied any hallucinations or delusions. The patient is taking her p.o. medications. ASSESSMENT AND PLAN: The patient has responded well to the medication according to the attending psychiatrist. The patient is reporting she feels less depressed and anxious. The attending psychiatrist indicates the patient most likely will be discharging today. We provided a review of a simple anxiety reduction skill that the patient has learned in treatment. We provided coping strategies for phase of life issues. We encouraged the patient to be able to verbalize her concerns to the staff at her placement as well as to continue to comply with her current treatment. The patient will be followed by this check writer at her placement. No followup is indicated as the patient is scheduled to discharge possibly today. JOB# [id number] [facility]
== END 2019-03-01 18:30 | DRG 57 ==
LOC: ER 18:19 → GERO 22:29
PROVIDERS: ADMIT Psychiatry & Neurology Psychiatry; ATTEND Psychiatry & Neurology Psychiatry
DX: G30.9 Alzheimer's disease, unspecified (principal); F01.51 Vascular dementia, unspecified severity, with behavioral disturbance; N18.9 Chronic kidney disease, unspecified; F02.81 Dementia in other diseases classified elsewhere, unspecified severity, with behavioral disturbance; F29 Unspecified psychosis not due to a substance or known physiological condition; F32.9 Major depressive disorder, single episode, unspecified; F63.9 Impulse disorder, unspecified; J44.9 Chronic obstructive pulmonary disease, unspecified; K29.70 Gastritis, unspecified, without bleeding; M19.90 Unspecified osteoarthritis, unspecified site; I12.9 Hypertensive chronic kidney disease with stage 1 through stage 4 chronic kidney disease, or unspecified chronic kidney disease; I25.10 Atherosclerotic heart disease of native coronary artery without angina pectoris; D64.9 Anemia, unspecified; F41.1 Generalized anxiety disorder; G40.909 Epilepsy, unspecified, not intractable, without status epilepticus; E78.5 Hyperlipidemia, unspecified; K27.9 Peptic ulcer, site unspecified, unspecified as acute or chronic, without hemorrhage or perforation; M81.0 Age-related osteoporosis without current pathological fracture; Z86.73 Personal history of transient ischemic attack (TIA), and cerebral infarction without residual deficits
CPT/HCPCS: 36415-UA; 71045-TC; 80048-TC; 80053-TC; 80061-TC; 80307; 81001-TC; 83036-90; 83880-TC; 84484-TC; 85007-TC; 85025-TC; 85610-TC; 93005; G0410; Z7610